=== PATIENT | female | born 1995 | race Two or more races ===

== ENCOUNTER 2018-01-07 10:10 | Outpatient (CLI) | payer OTHER | END 2018-01-07 10:20 | disposition home or self-care (01) | LOC: LAB 10:10 | DX: E03.8 Other specified hypothyroidism (principal); N91.3 Primary oligomenorrhea; E22.1 Hyperprolactinemia ==

== ENCOUNTER 2018-06-22 09:13 | Outpatient (CLI) | payer OTHER | END 2018-06-22 09:29 | disposition home or self-care (01) | LOC: LAB 09:13 | DX: Z34.00 Encounter for supervision of normal first pregnancy, unspecified trimester (principal); Z11.4 Encounter for screening for human immunodeficiency virus [HIV] ==

== ENCOUNTER 2018-07-21 10:15 | Emergency (ER) | payer OTHER ==
[~2018-07-21] VITALS: Ht 160 cm; Wt 57.6 kg
[2018-07-21] MEDS ORDERED: PRENATAL + DHA1 EAC1 PO (10:35)
== END 2018-07-21 14:30 | disposition home or self-care (01) ==
LOC: ER 10:15
DX: O20.0 Threatened abortion (principal)

== ENCOUNTER 2018-08-23 06:46 | Outpatient (CLI) | payer OTHER ==
[~2018-08-23 06:46] MED LIST: PRENATAL + DHA1 EAC1 PO
== END 2018-08-23 07:52 | disposition home or self-care (01) ==
LOC: LAB 06:46
DX: Z34.00 Encounter for supervision of normal first pregnancy, unspecified trimester (principal)

== ENCOUNTER 2018-10-07 21:55 | Outpatient (CLI) | payer OTHER ==
[2018-10-08] MEDS ORDERED: MONISTAT 745 GM VAG (07:32)
[2018-10-08] MEDS ORDERED: CEFUROXIME250 MG PO (07:32)
== END 2018-10-08 10:52 | disposition home or self-care (01) ==
LOC: OBS/DEL 21:55
DX: O23.42 Unspecified infection of urinary tract in pregnancy, second trimester (principal); Z34.02 Encounter for supervision of normal first pregnancy, second trimester; O35.8XX0 Maternal care for other (suspected) fetal abnormality and damage, not applicable or unspecified

== ENCOUNTER 2018-11-08 07:40 | Outpatient (CLI) | payer OTHER ==
[~2018-11-08 07:40] MED LIST changes: +CEFUROXIME250 MG PO; +MONISTAT 745 GM VAG
== END 2018-11-08 07:48 | disposition home or self-care (01) ==
LOC: LAB 07:40
DX: Z34.00 Encounter for supervision of normal first pregnancy, unspecified trimester (principal)

== ENCOUNTER 2018-12-21 11:37 | Inpatient (IN) | payer OTHER ==
[~2018-12-21] VITALS: Ht 157.5 cm; Wt 68.9 kg
== END 2019-01-12 12:42 | disposition home or self-care (01) | DRG 807 ==
LOC: OB/GYN 01-04 12:45 → LDR 01-10 09:31 → OB/GYN 01-10 20:09
PROVIDERS: ADMIT Specialist
PROC: 10E0XZZ Delivery of Products of Conception, External Approach (ICD-10-PCS; principal; 2019-01-10)
PROC: 10907ZC Drainage of Amniotic Fluid, Therapeutic from Products of Conception, Via Natural or Artificial Opening (ICD-10-PCS; 2019-01-10)
PROC: 0W8NXZZ Division of Female Perineum, External Approach (ICD-10-PCS; 2019-01-10)
PROC: 3E033VJ Introduction of Other Hormone into Peripheral Vein, Percutaneous Approach (ICD-10-PCS; 2019-01-10)
PROC: 4A1HXCZ Monitoring of Products of Conception, Cardiac Rate, External Approach (ICD-10-PCS; 2019-01-10)
DX: O80 Encounter for full-term uncomplicated delivery (principal); Z37.0 Single live birth; Z3A.38 38 weeks gestation of pregnancy

== ENCOUNTER 2019-03-23 10:50 | Outpatient (CLI) | payer OTHER | END 2019-03-23 13:54 | disposition home or self-care (01) | LOC: LAB 10:50 | DX: Z32.00 Encounter for pregnancy test, result unknown (principal) ==

== ENCOUNTER 2021-10-15 10:14 | Outpatient (CLI) | payer OTHER | END 2021-10-15 11:00 | disposition home or self-care (01) | LOC: LAB 10:14 | PROVIDERS: ATTEND Specialist | DX: Z34.80 Encounter for supervision of other normal pregnancy, unspecified trimester (principal) ==

== ENCOUNTER 2023-05-14 04:29 | Inpatient (IN) | payer OTHER ==
[~2023-05-14] VITALS: Ht 157.5 cm; Wt 75.3 kg
[~2023-05-14 04:29] MED LIST changes: +PRENATAL TABLE1 EAC1 PO; +SYNTHROID50 MCG PO
[2023-05-14 06:09] LABS: PH,URINE 6.5 (5.0-8.0); URINE APPEARANCE Clear; URINE BILIRRUBIN Negative (NEGATIVE); URINE BLOOD Negative; URINE COLOR Yellow; URINE GLUCOSE Negative (NEGATIVE); URINE LEUKOCYTE Trace; URINE NITRATE Negative; URINE PROTEIN Negative (NEGATIVE)
[2023-05-14 06:11] LABS: HEMATOCRIT 29.5 % (36.0-45.00); HEMOGLOBIN 9.7 g/dL (12.0-15.00); MEAN CELL VOLUME 75.3 fL (80.00-100.00); MEAN CORPUSCULAR HEMOGLOBIN 24.8 pg (27.00-32.0); PLATELET COUNT 229 K/uL (150-450); RED BLOOD COUNT 3.92 M/uL (4.00-6.00); RED CELL DISTRIBUTION WIDTH 15.5 % (11.5-14.5)
[2023-05-14 06:13] LABS: URINE BACTERIA 95.7 uL (0.0-1933); URINE EPITHELIAL CELLS 6.1 uL (0.0-38.8); URINE RBC 42.5 uL (0.0-20.8); URINE WBC 3.2 uL (0.0-23.2)
[2023-05-14 06:32] LABS: INR < 0.93; PARTIAL THROMBOPLASTIN TIME 23.9 SECONDS (22.0-34.0); PROTHROMBIN TIME 9.8 SECONDS (9.0-11.5)
[2023-05-14 07:09] LABS: ALBUMIN 2.7 gm/dL (3.4-5.0); BILIRUBIN TOTAL 0.48 mg/dL (0.3-1.2); CALCIUM 8.7 mg/dL (8.5-10.1); CREATININE SERUM 0.58 mg/dL (0.55-1.02); GFR 125.66; GLOBULINA 3.7 G/DL (2.4-3.5); POTASSIUM 4.05 mEq/L (3.5-5.1); TOTAL PROTEIN 6.4 gm/dL (6.4-8.2)
[2023-05-15 01:40] LABS: HEMATOCRIT 29.9 % (36.0-45.00); HEMOGLOBIN 9.6 g/dL (12.0-15.00); MEAN CORPUSCULAR HEMOGLOBIN 24.2 pg (27.00-32.0); MEAN CORPUSCULAR HGB CONC 32.2 g/dl (32.0-36.0); PLATELET COUNT 190 K/uL (150-450); RED BLOOD COUNT 3.98 M/uL (4.00-6.00); RED CELL DISTRIBUTION WIDTH 15.6 % (11.5-14.5)
== END 2023-05-16 14:32 | disposition home or self-care (01) | DRG 807 ==
LOC: LDR 04:29 → OB/GYN 04:29 → LDR 08:25 → OB/GYN 10:04
PROVIDERS: ADMIT Specialist; ATTEND Specialist
PROC: 10E0XZZ Delivery of Products of Conception, External Approach (ICD-10-PCS; principal; 2023-05-14)
PROC: 4A1HXCZ Monitoring of Products of Conception, Cardiac Rate, External Approach (ICD-10-PCS; 2023-05-14)
DX: O80 Encounter for full-term uncomplicated delivery (principal); Z37.0 Single live birth; Z3A.38 38 weeks gestation of pregnancy; Z20.822 Contact with and (suspected) exposure to COVID-19